=== PATIENT | male | born 1950 | race Caucasian/White ===

== ENCOUNTER 2019-02-21 10:33 | Inpatient (IN) | payer MEDICARE ==
[2019-02-15 16:59] LABS: BASOPHILS % (AUTO) 0.3 % (0-1); EOSINOPHILS # (AUTO) 0.1 X10'3 (0-0.9); EOSINOPHILS % (AUTO) 2.5 % (0-6); LYMPHOCYTES # (AUTO) 1.9 X10'3 (1.1-4.8); LYMPHOCYTES % (AUTO) 33.6 % (21-51); MEAN CORPUSCULAR HEMOGLOBIN 33.5 PG (27.0-31.0); MEAN CORPUSCULAR HGB CONC 33.8 g/dL (33.0-36.5); MEAN CORPUSCULAR VOLUME 99.3 FL (78-98); MEAN PLATELET VOLUME 8.3 FL (7.4-10.4); MONOCYTES # (AUTO) 0.5 X10'3 (0-0.9); MONOCYTES % (AUTO) 8.5 % (2-12); NEUTROPHILS # (AUTO) 3.2 X10'3 (1.8-7.7); NEUTROPHILS % (AUTO) 55.1 % (42-75); PRE OP HEMATOCRIT 42.5 % (42.0-52.0); PRE OP HEMOGLOBIN 14.3 g/dL (14.0-17.9); PRE OP PLATELET COUNT 228 X10'3 (140-440); RED BLOOD COUNT 4.28 X10'6 (4.70-6.10); RED CELL DISTRIBUTION WIDTH 13.5 % (11.5-14.5)
[2019-02-15 17:05] LABS: PRE OP PROTIME 10.7 SECONDS (9.0-12.0)
[2019-02-15 17:07] LABS: ALBUMIN 3.9 G/DL (3.4-5.0); ALBUMIN/GLOBULIN RATIO 1.1 (1.1-1.5); ALKALINE PHOSPHATASE 68 IU/L (46-116); BLOOD UREA NITROGEN 25 MG/DL (7-18); BUN/CREATININE RATIO 30.5 (5.4-32.0); CALCIUM 9.5 MG/DL (8.5-10.1); CHLORIDE 106 MMOL/L (99-107); CREATININE 0.82 MG/DL (0.60-1.10); PRE OP ALT 32 U/L (30-65); PRE OP ANION GAP 9 (8-16); PRE OP AST 17 U/L (10-37); PRE OP BILIRUB, TOTAL 0.3 MG/DL (0.0-1.0); PRE OP GLUCOSE 100 MG/DL (70-104); PRE OP POTASSIUM 4.2 MMOL/L (3.4-5.1); PRE OP SODIUM 141 MMOL/L (135-145); TOTAL CARBON DIOXIDE 25.7 MMOL/L (24-32); TOTAL PROTEIN 7.4 G/DL (6.4-8.2); eGFR > 90 ML/MIN
[~2019-02-21] VITALS: Ht 185.4 cm; Wt 109.8 kg
[2019-02-21] VITALS (15 sets, daily range): BP systolic 98–157; BP diastolic 56–80
[~2019-02-21 10:33] MED LIST: APIX5TAB3 PO; ATOR40TA PO; CARV-50 PO; FURO80TA87 PO; HYDR-4383 PO; LISI40TA4 PO; MAGN400C PO; SPIR25TA PO
[2019-02-21] MEDS ORDERED: acetaminophen 325mg tablet PO PRN (10:45)
[2019-02-21] MEDS ORDERED: oxyCODONE/APAP 10/325mg tablet PO PRN (10:45)
[2019-02-21] MEDS ORDERED: ondansetron/PF 4mg/2ml inj IV PRN ×2 (10:45→14:30)
[2019-02-21] MEDS ORDERED: diphenhydrAMINE 25mg capsule PO PRN ×2 (10:45)
[2019-02-21] MEDS ORDERED: magnesium hydroxide 30ml (MOM) UD suspension PO PRN (10:45)
[2019-02-21] MEDS ORDERED: bisacodyl 10mg suppository rectal RC PRN (10:45)
[2019-02-21] MEDS ORDERED: HYDROmorphone 1 mg/ml syringe IV PRN (10:45)
[2019-02-21] MEDS ORDERED: HYDROmorphone inj. 0.5 MG/0.5 ML DISP.SYRIN IV PRN (10:45)
[2019-02-21] MEDS ORDERED: vancomycin inj 1,500 MG in normal saline 300ml IV soln IV ONE (11:15)
[2019-02-21] MEDS ORDERED: tranexamic acid inj. 1,000 MG in normal saline 100 ML IV ONE (11:15)
[2019-02-21] MEDS ORDERED: acetaminophen 325mg tablet PO ONE (11:15)
[2019-02-21] MEDS ORDERED: gabapentin 300mg capsule PO ONE (11:15)
[2019-02-21] MEDS ORDERED: famotidine 20mg tablet PO ONE (11:15)
[2019-02-21] MEDS ORDERED: ringers solution, lacted 1,000 ML IV SCH ×2 (11:15→14:29)
[2019-02-21] MEDS ORDERED: celeCOXIB 100mg capsule PO ONE (11:15)
[2019-02-21] MEDS ORDERED: DOCUMENT DATE & TIME OF BETA-BLOCKER PO ONE (11:15)
[2019-02-21] MEDS ORDERED: metoclopramide 5 mg/ml inj IV ONE (11:15)
[2019-02-21] MEDS ORDERED: cefazolin/dext.iso 2gm/50ml 50 ML IV ONE (11:15)
[2019-02-21] MEDS ORDERED: oxyCODONE SR 10mg (sust. release) tab -2 tabs (20mg) PO ONE (11:15)
[2019-02-21] MEDS ORDERED: epiNEPHrine 1 mg/ml inj ONE (12:49)
[2019-02-21] MEDS ORDERED: ROPIVAcaine 0.5% (5mg/ml) 30ml vial ONE (12:49)
[2019-02-21] MEDS ORDERED: ketorolac trometh. 30mg/ml inj. ONE (12:49)
[2019-02-21] MEDS ORDERED: cloNIDine hcl/PF 100mcg/ml inj ONE (12:49)
[2019-02-21] MEDS ORDERED: vancomycin 1,000mg inj ONE (12:49)
[2019-02-21] MEDS ORDERED: tetracaine 1% (10mg/ml) pres. free inj. ONE (13:27)
[2019-02-21] MEDS ORDERED: fentaNYL/PF 50MCG/1 ML 2ML syringe ONE (13:29)
[2019-02-21] MEDS ORDERED: MIDAZolam 1mg/ml 10ml vial ONE (13:29)
[2019-02-21] MEDS ORDERED: meperidine/PF 25mg/ml syringe IV PRN ×3 (14:30)
[2019-02-21] MEDS ORDERED: morphine 4 MG/ML inj SYRINge IV PRN ×2 (14:30)
[2019-02-21] MEDS ORDERED: proCHLORperazine 10 MG/2 ml inj IV PRN (14:30)
[2019-02-21] MEDS ORDERED: propofol inj 20 ML IV ONE (15:13)
[2019-02-21] MEDS ORDERED: glycopyrrolate 0.2mg/ml inj ONE (15:15)
--- NOTE | 2019-02-21 15:55 | NUR ---
Received from OR via BED , accompanied by Anesthesiologist DR PYLE and report given by Anesthesiolgist. PATIENT WAKING UP, DENIES PAIN, V/S WNL, NEUROVASCULAR CHECKS INTACT, 18G PIV LUE , BERNY DRESSING TO LEFT KNEE CDI W/ COLD POWDER PACK AND W/ SCD ON. F/C DRAINING CLEAR YELLOW URINE. SENSATION T-11.
[2019-02-21] MEDS ORDERED: cefazolin/dext.iso 2gm/100ml 100 ML IV SCH (16:00)
--- NOTE | 2019-02-21 16:13 | NUR ---
REPORT RECEIVED FROM RECOVERY
[2019-02-21] MEDS: potassium cl 20mEq in 1/2 NS 1,000 ML IV SCH ×2 (16:16→20:53)
[2019-02-21] MEDS: ROPIVAcaine 0.2%/PF PAIN PUMP 550 ML IJ SCH (16:37)
--- NOTE | 2019-02-21 16:55 | NUR ---
PATIENT A&OX4, DENIES PAIN, V/S WNL, NEUROVASCULAR CHECKS INTACT, 18G PIV LUE , BERNY DRESSING TO LEFT KNEE CDI W/ COLD POWDER PACK AND W/ SCD ON. F/C DRAINING CLEAR YELLOW URINE. SENSATION T-12. . PATIENT TAKEN TO WITH ALL BELONGINGS AND HOOKED UP TO MONITORS IN ROOM AND REPORT GIVEN TO CONTENT ADMINISTRATOR WHO HAS TAKEN OVER PATIENT CARE. TELE ON PATIENT WELL.
[2019-02-21] MEDS: cefazolin/dext.iso 2gm/50ml 50 ML IV SCH ×2 (17:56→23:35)
--- NOTE | 2019-02-21 18:27 | NUR ---
Problems reprioritized. Patient report given, questions answered & plan of care reviewed with Nimco KASPER.
[2019-02-21] MEDS ORDERED: tranexamic acid inj. 1,000 MG in normal saline 100ml IV soln 100 ML IV ONE (19:00)
[2019-02-21] MEDS: apixaban 5mg tablet PO SCH (20:48)
[2019-02-21] MEDS: sennosides 8.6mg tablet PO SCH (20:48)
[2019-02-21] MEDS: carvedilol 6.25mg tablet PO SCH (20:49)
[2019-02-21] MEDS: ascorbic acid 500mg tablet PO SCH (20:49)
[2019-02-21] MEDS: gabapentin 300mg capsule PO SCH (20:50)
[2019-02-22 01:48] VITALS: BP 120/57
[2019-02-22] MEDS: oxyCODONE/APAP 10/325mg tablet PO PRN ×4 (04:58→21:20)
[2019-02-22] MEDS: potassium cl 20mEq in 1/2 NS 1,000 ML IV SCH ×3 (05:05→15:04)
[2019-02-22 06:00] VITALS: BP 112/60
[2019-02-22 06:05] LABS: BASOPHILS % (AUTO) 0.2 % (0-1); EOSINOPHILS # (AUTO) 0.2 X10'3 (0-0.9); EOSINOPHILS % (AUTO) 2.5 % (0-6); HEMATOCRIT 33.4 % (42.0-52.0); HEMOGLOBIN 11.3 g/dl (14.0-17.9); LYMPHOCYTES # (AUTO) 1.2 X10'3 (1.1-4.8); LYMPHOCYTES % (AUTO) 18.4 % (21-51); MEAN CORPUSCULAR HEMOGLOBIN 33.6 PG (27.0-31.0); MEAN CORPUSCULAR VOLUME 98.8 FL (78-98); MEAN PLATELET VOLUME 8.2 FL (7.4-10.4); MONOCYTES # (AUTO) 0.6 X10'3 (0-0.9); NEUTROPHILS # (AUTO) 4.4 X10'3 (1.8-7.7); NEUTROPHILS % (AUTO) 68.9 % (42-75); PLATELET COUNT 150 X10'3 (140-440); RED BLOOD COUNT 3.38 X10'6 (4.70-6.10); RED CELL DISTRIBUTION WIDTH 12.9 % (11.5-14.5); WHITE BLOOD COUNT 6.4 X10'3 (4.5-11.0)
[2019-02-22 06:06] LABS: ANION GAP 7 (8-16); CHLORIDE 107 MMOL/L (99-107); POTASSIUM 4.2 MMOL/L (3.5-5.1); SODIUM 139 MMOL/L (135-145); TOTAL CARBON DIOXIDE 25.2 MMOL/L (24-32)
--- NOTE | 2019-02-22 06:15 | NUR ---
Patient in room ORTHO 4015. I have received report from Nimco and had the opportunity to ask questions and assume patient care.
--- NOTE | 2019-02-22 06:18 | NUR ---
Problems reprioritized. Patient report given, questions answered & plan of care reviewed with MAJO ALVARADO.
[2019-02-22] MEDS: cefazolin/dext.iso 2gm/50ml 50 ML IV SCH (07:23)
[2019-02-22] MEDS: furosemide 40mg tablet PO SCH (07:31)
[2019-02-22] MEDS: spironolactone 25 MG tablet PO SCH (07:31)
[2019-02-22] MEDS: apixaban 5mg tablet PO SCH ×2 (07:31→20:31)
[2019-02-22] MEDS: atorvastatin 20mg tablet PO SCH (07:31)
[2019-02-22] MEDS: carvedilol 6.25mg tablet PO SCH ×2 (07:31→20:31)
[2019-02-22] MEDS: magnesium oxide 400mg tablet PO SCH (07:32)
[2019-02-22] MEDS: gabapentin 300mg capsule PO SCH ×3 (07:32→20:31)
[2019-02-22] MEDS: ascorbic acid 500mg tablet PO SCH ×2 (07:33→20:31)
[2019-02-22] MEDS: multivitamins, therapeutics tablet PO SCH (07:33)
[2019-02-22] MEDS: lisinopril 20mg tablet PO SCH (07:34)
[2019-02-22] MEDS ORDERED: non-formulary drug (Magnesium Oxide (Magnesium) 2 CAP) PO SCH (08:00)
[2019-02-22] MEDS ORDERED: non-formulary drug (Atorvastatin Calcium* (Lipitor*) 1 TAB) PO SCH (08:00)
[2019-02-22] MEDS ORDERED: FUROSEMIDE PO SCH (08:00)
[2019-02-22] MEDS ORDERED: non-formulary drug (Lisinopril* 1 TAB) PO SCH (08:00)
[2019-02-22 10:00] VITALS: BP 112/59
[2019-02-22 14:52] VITALS: BP 126/62
--- NOTE | 2019-02-22 17:16 | NUR ---
Joint replacement consult: Pt seen by ANTHONY for written/verbal high protein ed. RD reviewed high protein needs for wound healing, immune strength, high protein foods, and protein supplementation options. RD contact information provided in case of further questions. Pt agrees to ensure pudding TIDWM; dietary notified. Addendum: 02/22/19 at [address] Amended: Links added.
[2019-02-22 18:00] VITALS: BP 136/63
--- NOTE | 2019-02-22 18:23 | NUR ---
Problems reprioritized. Patient report given, questions answered & plan of care reviewed with Mili Boogie
[2019-02-22] MEDS: celeCOXIB 100mg capsule PO SCH (20:31)
[2019-02-22] MEDS: sennosides 8.6mg tablet PO SCH (20:32)
[2019-02-22 22:00] VITALS: BP 113/61
[2019-02-23] MEDS: oxyCODONE/APAP 10/325mg tablet PO PRN ×4 (01:29→13:59)
[2019-02-23] MEDS: potassium cl 20mEq in 1/2 NS 1,000 ML IV SCH (02:43)
[2019-02-23 05:27] LABS: BASOPHILS % (AUTO) 0.3 % (0-1); EOSINOPHILS # (AUTO) 0.3 X10'3 (0-0.9); EOSINOPHILS % (AUTO) 4.8 % (0-6); HEMATOCRIT 31.8 % (42.0-52.0); HEMOGLOBIN 10.9 g/dl (14.0-17.9); LYMPHOCYTES # (AUTO) 1.6 X10'3 (1.1-4.8); LYMPHOCYTES % (AUTO) 24.1 % (21-51); MEAN CORPUSCULAR HEMOGLOBIN 33.7 PG (27.0-31.0); MEAN CORPUSCULAR HGB CONC 34.4 g/dL (33.0-36.5); MEAN CORPUSCULAR VOLUME 97.9 FL (78-98); MEAN PLATELET VOLUME 8.2 FL (7.4-10.4); MONOCYTES # (AUTO) 1.1 X10'3 (0-0.9); MONOCYTES % (AUTO) 16.5 % (2-12); NEUTROPHILS # (AUTO) 3.7 X10'3 (1.8-7.7); NEUTROPHILS % (AUTO) 54.3 % (42-75); PLATELET COUNT 147 X10'3 (140-440); RED BLOOD COUNT 3.25 X10'6 (4.70-6.10); WHITE BLOOD COUNT 6.8 X10'3 (4.5-11.0)
[2019-02-23 06:00] VITALS: BP 108/61
--- NOTE | 2019-02-23 06:20 | NUR ---
Patient in room ORTHO 4015. I have received report from Mili Boogie and had the opportunity to ask questions and assume patient care.
--- NOTE | 2019-02-23 06:25 | NUR ---
Problems reprioritized. Patient report given, questions answered & plan of care reviewed with MAJO Graham.
[2019-02-23 06:55] VITALS: BP 129/71
[2019-02-23 06:56] LABS: TOTAL CELLS COUNTED 100
[2019-02-23 06:57] LABS: ANISOCYTOSIS FEW; PLATELET ESTIMATE NORMAL
[2019-02-23] MEDS: spironolactone 25 MG tablet PO SCH (08:19)
[2019-02-23 08:20] VITALS: BP 129/93
[2019-02-23] MEDS: apixaban 5mg tablet PO SCH (08:20)
[2019-02-23] MEDS: celeCOXIB 100mg capsule PO SCH (08:20)
[2019-02-23] MEDS: carvedilol 6.25mg tablet PO SCH (08:20)
[2019-02-23] MEDS: atorvastatin 20mg tablet PO SCH (08:20)
[2019-02-23] MEDS: magnesium oxide 400mg tablet PO SCH (08:21)
[2019-02-23] MEDS: gabapentin 300mg capsule PO SCH ×2 (08:21→13:59)
[2019-02-23] MEDS: furosemide 40mg tablet PO SCH (08:21)
[2019-02-23] MEDS: ascorbic acid 500mg tablet PO SCH (08:21)
--- NOTE | 2019-02-23 08:21 | NUR ---
Student Medication Administration: For this medication-pass time frame, all medication were reviewed, dispensed, administered and documented per hospital policy by Mary ELIZABETH at [facility], with her instructor.
[2019-02-23] MEDS: lisinopril 20mg tablet PO SCH (08:22)
[2019-02-23] MEDS: multivitamins, therapeutics tablet PO SCH (08:22)
--- NOTE | 2019-02-23 08:45 | NUR ---
DC orders in, pt not in a watters to discharge.
[2019-02-23 10:00] VITALS: BP 98/45
[2019-02-23] MEDS ORDERED: normal saline 1000ml 1,000 ML IV SCH (10:20)
--- NOTE | 2019-02-23 10:30 | NUR ---
Pt's blood pressure decreased, per PEST CONTROL SPECIALIST, give 500 mL bolus and recheck.
[2019-02-23 11:40] VITALS: BP 98/49
--- NOTE | 2019-02-23 11:58 | NUR ---
Student documentation: I have reviewed all interventions, assessments performed and documented by Mary Brock [place]. Student Medication Administration: For this medication-pass time frame, all medication were reviewed, dispensed, administered and documented per hospital policy by [facility].
[2019-02-23 13:40] VITALS: BP 119/63
[2019-02-23] MEDS: ROPIVAcaine 0.2%/PF PAIN PUMP 550 ML IJ SCH (14:31)
--- NOTE | 2019-02-23 14:43 | NUR ---
BP stable, will DC.
--- NOTE | 2019-02-23 15:21 | NUR ---
Pt awaiting ride between 16:00 - 16:30
--- NOTE | 2019-02-23 16:18 | NUR ---
Reviewed discharge instructions with pt. Pt verbalized understanding. Pt is alert, oriented and does not have c/o pain or discomfort at this time. Pt's On-Q pump was refilled prior to discharge. All of pt's belongings were returned to him. Pt was wheeled downstairs to be driven home by his daughter.
== END 2019-02-23 16:20 | disposition home or self-care (01) | DRG 470 ==
LOC: PAS IN 10:33 → EDSTATUS 13:15 → ORTHO 4S 16:50
PROVIDERS: ADMIT Orthopaedic Surgery; ATTEND Orthopaedic Surgery
PROC: 3E0T3BZ Introduction of Anesthetic Agent into Peripheral Nerves and Plexi, Percutaneous Approach (ICD-10-PCS; 2019-02-21)
PROC: 0SRD069 Replacement of Left Knee Joint with Oxidized Zirconium on Polyethylene Synthetic Substitute, Cemented, Open Approach (ICD-10-PCS; principal; 2019-02-21 13:21)
DX: M17.12 Unilateral primary osteoarthritis, left knee (principal); D62 Acute posthemorrhagic anemia; I11.0 Hypertensive heart disease with heart failure; I50.9 Heart failure, unspecified; M19.011 Primary osteoarthritis, right shoulder; Z86.711 Personal history of pulmonary embolism; Z72.89 Other problems related to lifestyle; Z79.899 Other long term (current) drug therapy; Z79.01 Long term (current) use of anticoagulants
CPT/HCPCS: 36415; 73560; 80051; 80053; 82948; 85025; 85610; 85730; 86885; 86900; 86901; 87081; 97110; 97116; 97161; 97530; A4215; A6454; A7000; C1713; C1758; C1776; G0378; J0171; J0735; J1170; J1885; J2250; J2405; J2704; J2765; J2795; J3010; J3370; J3480; J3490; J7030; J7120

== ENCOUNTER 2019-04-28 07:30 | Inpatient (IN) | payer MEDICARE ==
[~2019-04-28] VITALS: Ht 185.4 cm; Wt 111.1 kg
[~2019-04-28 07:30] MED LIST changes: -HYDR-4383 PO
[2019-05-09 11:00] LABS: BASOPHILS % (AUTO) 0.2 % (0-1); EOSINOPHILS # (AUTO) 0.2 X10'3 (0-0.9); EOSINOPHILS % (AUTO) 3.8 % (0-6); LYMPHOCYTES # (AUTO) 2.2 X10'3 (1.1-4.8); LYMPHOCYTES % (AUTO) 37.1 % (21-51); MEAN CORPUSCULAR HEMOGLOBIN 32.2 PG (27.0-31.0); MEAN CORPUSCULAR HGB CONC 33.9 g/dL (33.0-36.5); MEAN CORPUSCULAR VOLUME 94.9 FL (78-98); MEAN PLATELET VOLUME 7.9 FL (7.4-10.4); MONOCYTES # (AUTO) 0.7 X10'3 (0-0.9); MONOCYTES % (AUTO) 10.9 % (2-12); NEUTROPHILS # (AUTO) 2.9 X10'3 (1.8-7.7); PRE OP HEMATOCRIT 40.1 % (42.0-52.0); PRE OP HEMOGLOBIN 13.6 g/dL (14.0-17.9); PRE OP PLATELET COUNT 256 X10'3 (140-440); RED BLOOD COUNT 4.23 X10'6 (4.70-6.10); RED CELL DISTRIBUTION WIDTH 14.5 % (11.5-14.5)
[2019-05-09 11:10] LABS: PRE OP PROTIME 10.8 SECONDS (9.0-12.0)
[2019-05-09 11:22] LABS: ALBUMIN 3.9 G/DL (3.4-5.0); ALBUMIN/GLOBULIN RATIO 1.2 (1.1-1.5); ALKALINE PHOSPHATASE 71 IU/L (46-116); BLOOD UREA NITROGEN 24 MG/DL (7-18); BUN/CREATININE RATIO 24.2 (5.4-32.0); CALCIUM 8.9 MG/DL (8.5-10.1); CHLORIDE 105 MMOL/L (99-107); CREATININE 0.99 MG/DL (0.60-1.10); PRE OP ALT 23 U/L (30-65); PRE OP ANION GAP 7 (8-16); PRE OP AST 17 U/L (10-37); PRE OP BILIRUB, TOTAL 0.6 MG/DL (0.0-1.0); PRE OP GLUCOSE 103 MG/DL (70-104); PRE OP POTASSIUM 4.2 MMOL/L (3.4-5.1); PRE OP SODIUM 141 MMOL/L (135-145); TOTAL CARBON DIOXIDE 29.3 MMOL/L (24-32); TOTAL PROTEIN 7.2 G/DL (6.4-8.2); eGFR 75 ML/MIN
[2019-05-09] MEDS ORDERED: GABA-532 PO (11:39)
[2019-05-09] MEDS ORDERED: CELE200C PO (11:39)
[2019-05-09] MEDS ORDERED: OXYC10TA47 PO (11:39)
[2019-05-09] MEDS ORDERED: ONDA8TAB13 PO (11:39)
[2019-05-15] VITALS (24 sets, daily range): BP systolic 132–155; BP diastolic 68–86
[2019-05-15] MEDS ORDERED: ringers solution, lacted 1,000 ML IV SCH ×2 (05:00→08:42)
[2019-05-15] MEDS ORDERED: cefazolin/dext.iso 2gm/100ml 100 ML IV ONE (05:30)
[2019-05-15] MEDS ORDERED: famotidine 20mg tablet PO ONE (05:30)
[2019-05-15] MEDS ORDERED: vancomycin inj 1,500 MG in normal saline 300ml IV soln IV ONE (05:30)
[2019-05-15] MEDS ORDERED: DOCUMENT DATE & TIME OF BETA-BLOCKER PO ONE (05:30)
[2019-05-15] MEDS ORDERED: tranexamic acid inj. 1,100 MG in normal saline 100ml IV soln 100 ML IV ONE ×4 (05:30)
[2019-05-15] MEDS ORDERED: ROPIVAcaine 0.2%/PF PUMP/bolus 550 ML INTERSCALE SCH (08:42)
[2019-05-15] MEDS ORDERED: ketorolac trometh. 30mg/ml inj. ONE (08:43)
[2019-05-15] MEDS ORDERED: ROPIVAcaine 0.5% (5mg/ml) 30ml vial ONE ×2 (08:44→11:46)
[2019-05-15] MEDS ORDERED: proCHLORperazine 10 MG/2 ml inj IV PRN (08:45)
[2019-05-15] MEDS ORDERED: morphine 4 MG/ML inj SYRINge IV PRN ×2 (08:45)
[2019-05-15] MEDS ORDERED: ondansetron/PF 4mg/2ml inj IV PRN ×2 (08:45→12:40)
[2019-05-15] MEDS ORDERED: ROPIVAcaine 0.2% (10 MG/5 ML) BOLUS INJECTION INTERSCALE PRN (08:45)
[2019-05-15] MEDS ORDERED: meperidine/PF 25mg/ml syringe IV PRN ×3 (08:45)
[2019-05-15] MEDS ORDERED: ePHEDrine 50MG/ML INJ. ONE (09:40)
[2019-05-15] MEDS ORDERED: sevoflurane 250ml liquid IH ONE (09:40)
[2019-05-15] MEDS ORDERED: fentaNYL/PF 50MCG/1 ML 2ML syringe ONE (09:51)
[2019-05-15] MEDS ORDERED: MIDAZolam 5mg/5ml vial ONE (09:52)
[2019-05-15] MEDS ORDERED: glycopyrrolate 0.2mg/ml inj ONE (11:46)
[2019-05-15] MEDS ORDERED: dexamethasone sod phosphate 4mg/ml inj. ONE (11:46)
[2019-05-15] MEDS ORDERED: rocuronium 10mg/ml inj IV ONE (11:46)
[2019-05-15] MEDS ORDERED: ondansetron/PF 4mg/2ml inj ONE (11:46)
[2019-05-15] MEDS ORDERED: propofol inj 20 ML IV ONE (11:46)
[2019-05-15] MEDS ORDERED: neostigmine methylsulfate 1 MG/ML 10ml vial ONE (11:46)
[2019-05-15] MEDS ORDERED: LIDOcaine 1%/PF 5ML 10 MG/ML VIAL ONE (11:46)
[2019-05-15] MEDS ORDERED: flumazenil 0.1 mg/ml inj. IV ONE (12:03)
--- NOTE | 2019-05-15 12:15 | NUR ---
Received from OR via BED , accompanied by Anesthesiologist and report given by Anesthesiolgist. PATIENT WAKING UP, DENIES PAIN, V/S WNL, NEUROVASCULAR CHECKS INTACT, DRESSING TO RIGHT SHOULDER CDI WITH SLING AND COLD POWDER PACK ON AND ONQUE BALL BLOCK AT 4ML/HR. SCD ON. 18G BECCAE PIV.
[2019-05-15] MEDS ORDERED: acetaminophen 325mg tablet PO PRN (12:40)
[2019-05-15] MEDS ORDERED: bisacodyl 10mg suppository rectal RC PRN (12:40)
[2019-05-15] MEDS ORDERED: oxyCODONE IR 5mg (immed. release) tablet PO PRN (12:40)
[2019-05-15] MEDS ORDERED: magnesium hydroxide 30ml (MOM) UD suspension PO PRN (12:40)
[2019-05-15] MEDS ORDERED: ondansetron 4mg rapidly disintigrating tab PO PRN (12:40)
[2019-05-15] MEDS ORDERED: HYDROmorphone 1 mg/ml syringe IV PRN (12:40)
[2019-05-15] MEDS ORDERED: HYDROmorphone inj. 0.5 MG/0.5 ML DISP.SYRIN IV PRN (12:40)
[2019-05-15] MEDS ORDERED: diphenhydrAMINE 25mg capsule PO PRN ×2 (12:40)
[2019-05-15] MEDS: acetaminophen 325mg tablet PO SCH ×2 (14:00→21:41)
--- NOTE | 2019-05-15 14:05 | NUR ---
PATIENT A&OX4, DENIES PAIN, V/S WNL, NEUROVASCULAR CHECKS INTACT, DRESSING TO RIGHT SHOULDER CDI WITH SLING AND COLD POWDER PACK ON AND ONQUE BALL BLOCK AT 4ML/HR. SCD ON. 18G LUE PIV. pATIENT TAKEN TO ORTHO ROOM AND HOOKED UP TO MONITORS IN ROOM AND PULSE OX, CALL LIGHT GIVEN TO PATIENT AND Problems reprioritized. Patient report given , questions answered & plan of care reviewed RECIEVING TRAIN PLANNER WHO HAS TAKEN OVER PATIENT CARE.
[2019-05-15] MEDS ORDERED: tranexamic acid inj. 1,110 MG in normal saline 100ml IV soln 100 ML IV ONE (15:40)
[2019-05-15 15:43] LABS: CREATININE 0.93 MG/DL (0.60-1.10); POTASSIUM 4.3 MMOL/L (3.5-5.1); eGFR 81 ML/MIN
[2019-05-15] MEDS: gabapentin 300mg capsule PO SCH ×2 (17:28→23:38)
[2019-05-15] MEDS: ceFAZolin 1GM/D5W- ADD-VANTAGE 50 ML IV SCH ×2 (17:28→23:40)
[2019-05-15] MEDS: potassium cl 20mEq in 1/2 NS 1,000 ML IV SCH ×2 (17:29→20:37)
[2019-05-15] MEDS ORDERED: vancomycin/NS 1 GM ADD-VANTAGE 250 ML IV SCH (20:00)
[2019-05-15] MEDS ORDERED: celeCOXIB 100mg capsule PO SCH (20:00)
[2019-05-15] MEDS ORDERED: sennosides 8.6mg tablet PO SCH (21:00)
[2019-05-15] MEDS: apixaban 5mg tablet PO SCH (21:37)
[2019-05-15] MEDS: carvedilol 6.25mg tablet PO SCH (21:38)
[2019-05-15] MEDS: magnesium oxide 400mg tablet PO SCH (21:41)
[2019-05-16] MEDS: acetaminophen 325mg tablet PO SCH ×3 (02:00→15:01)
[2019-05-16 02:05] VITALS: BP 122/68
[2019-05-16] MEDS: potassium cl 20mEq in 1/2 NS 1,000 ML IV SCH ×2 (03:54→12:37)
[2019-05-16 06:27] VITALS: BP 131/67
[2019-05-16 07:17] LABS: BASOPHILS % (AUTO) 0.1 % (0-1); EOSINOPHILS % (AUTO) 0.2 % (0-6); HEMATOCRIT 34.1 % (42.0-52.0); HEMOGLOBIN 11.6 g/dl (14.0-17.9); LYMPHOCYTES # (AUTO) 1.6 X10'3 (1.1-4.8); MEAN CORPUSCULAR HEMOGLOBIN 32.6 PG (27.0-31.0); MEAN CORPUSCULAR HGB CONC 33.9 g/dL (33.0-36.5); MEAN CORPUSCULAR VOLUME 96.2 FL (78-98); MEAN PLATELET VOLUME 8.3 FL (7.4-10.4); MONOCYTES # (AUTO) 0.8 X10'3 (0-0.9); MONOCYTES % (AUTO) 9.8 % (2-12); NEUTROPHILS # (AUTO) 5.4 X10'3 (1.8-7.7); NEUTROPHILS % (AUTO) 69.9 % (42-75); PLATELET COUNT 188 X10'3 (140-440); RED BLOOD COUNT 3.54 X10'6 (4.70-6.10); RED CELL DISTRIBUTION WIDTH 14.2 % (11.5-14.5); WHITE BLOOD COUNT 7.8 X10'3 (4.5-11.0)
[2019-05-16] MEDS: carvedilol 6.25mg tablet PO SCH (07:54)
[2019-05-16] MEDS: apixaban 5mg tablet PO SCH (07:54)
[2019-05-16] MEDS: magnesium oxide 400mg tablet PO SCH (07:56)
[2019-05-16] MEDS: gabapentin 300mg capsule PO SCH (07:57)
[2019-05-16] MEDS ORDERED: lisinopril 20mg tablet PO SCH (08:00)
[2019-05-16] MEDS ORDERED: atorvastatin 20mg tablet PO SCH (08:00)
[2019-05-16] MEDS ORDERED: furosemide 40mg tablet PO SCH (08:00)
[2019-05-16] MEDS ORDERED: spironolactone 25 MG tablet PO SCH (08:00)
[2019-05-16] MEDS ORDERED: aspirin 325mg tablet PO SCH (08:30)
[2019-05-16 09:11] LABS: ANION GAP 18 (8-16); CHLORIDE 111 MMOL/L (99-107); POTASSIUM 4.4 MMOL/L (3.5-5.1); SODIUM 146 MMOL/L (135-145); TOTAL CARBON DIOXIDE 17.1 MMOL/L (24-32)
[2019-05-16] MEDS: oxyCODONE IR 5mg (immed. release) tablet PO PRN ×2 (09:53→15:04)
[2019-05-16 10:15] VITALS: BP 156/53
--- NOTE | 2019-05-16 11:02 | NUR ---
Student Medication Administration:For this medication-pass time frame [id number], all medications were reviewed,administered and documented per hospital policy by Shirley Armstrong. Student documentation:I have reviewed and agree with all interventions, assessments performed and documented by Shirley Armstrong.
--- NOTE | 2019-05-16 12:22 | NUR ---
Joint replacement consult: Pt seen by ANTHONY for written/verbal high protein ed w/ RD contact information provided. Pt reports has premier proteins at home. Will continue to monitor. Addendum: 05/16/19 at [address] Amended: Links added.
[2019-05-16 14:00] VITALS: BP 143/80
[2019-05-17] MEDS ORDERED: acetaminophen 325mg tablet PO PRN (12:40)
== END 2019-05-16 16:05 | disposition home health service (06) | DRG 483 ==
LOC: EDUNIT# 07:30 → PAS IN 05-15 06:56 → EDSTATUS 05-15 13:30 → ORTHO 4S 05-15 13:55
PROVIDERS: ADMIT Orthopaedic Surgery; ATTEND Orthopaedic Surgery
PROC: 0LS30ZZ Reposition Right Upper Arm Tendon, Open Approach (ICD-10-PCS; 2019-05-15)
PROC: 3E0T3BZ Introduction of Anesthetic Agent into Peripheral Nerves and Plexi, Percutaneous Approach (ICD-10-PCS; 2019-05-15)
PROC: 0RRJ0JZ Replacement of Right Shoulder Joint with Synthetic Substitute, Open Approach (ICD-10-PCS; principal; 2019-05-15 09:40)
DX: M19.011 Primary osteoarthritis, right shoulder (principal); D62 Acute posthemorrhagic anemia; M25.511 Pain in right shoulder; E78.5 Hyperlipidemia, unspecified; R30.9 Painful micturition, unspecified; Z96.652 Presence of left artificial knee joint; G89.29 Other chronic pain; I11.0 Hypertensive heart disease with heart failure; I50.9 Heart failure, unspecified; M65.811 Other synovitis and tenosynovitis, right shoulder; Z86.711 Personal history of pulmonary embolism; Z72.89 Other problems related to lifestyle; Z79.899 Other long term (current) drug therapy; Z79.01 Long term (current) use of anticoagulants
CPT/HCPCS: 36415; 80051; 80053; 82565; 82948; 84132; 85025; 85610; 85730; 87081; 97110; 97116; 97162; A4215; A4565; A4618; A7000; C1713; C1776; G0378; J0690; J1100; J1170; J1885; J2250; J2405; J2704; J2710; J2795; J3010; J3370; J3480; J3490; J7120

== ENCOUNTER 2021-10-09 07:27 | Outpatient (CLI) | payer MEDICARE ==
[2021-10-09] VITALS (23 sets, daily range): BP systolic 0–224; BP diastolic 0–134
[~2021-10-09 07:27] MED LIST changes: +CELE200C PO; +GABA-532 PO; +LISI40TA13 PO; -LISI40TA4 PO; +ONDA8TAB13 PO; +OXYC10TA47 PO
== END 2021-10-09 23:59 | disposition home or self-care (01) ==
LOC: CARD DIAG 07:27
PROVIDERS: ATTEND Internal Medicine Cardiovascular Disease
DX: R42 Dizziness and giddiness (principal)
CPT/HCPCS: 93660

== ENCOUNTER 2021-11-18 09:36 | Inpatient (IN) | payer MEDICARE ==
[2021-11-13 12:24] LABS: BASOPHILS % (AUTO) 0.7 % (0-1); EOSINOPHILS # (AUTO) 0.1 X10'3 (0-0.9); EOSINOPHILS % (AUTO) 1.6 % (0-6); LYMPHOCYTES # (AUTO) 1.4 X10'3 (1.1-4.8); LYMPHOCYTES % (AUTO) 26.6 % (21-51); MEAN CORPUSCULAR HEMOGLOBIN 32.3 PG (27.0-31.0); MEAN CORPUSCULAR HGB CONC 33.9 g/dL (33.0-36.5); MEAN CORPUSCULAR VOLUME 95.2 FL (78-98); MEAN PLATELET VOLUME 7.9 FL (7.4-10.4); MONOCYTES # (AUTO) 0.7 X10'3 (0-0.9); MONOCYTES % (AUTO) 12.4 % (2-12); NEUTROPHILS # (AUTO) 3.1 X10'3 (1.8-7.7); NEUTROPHILS % (AUTO) 58.7 % (42-75); PRE OP HEMATOCRIT 55.9 % (42.0-52.0); PRE OP PLATELET COUNT 216 X10'3 (140-440); RED BLOOD COUNT 5.87 X10'6 (4.70-6.10); RED CELL DISTRIBUTION WIDTH 15.8 % (11.5-14.5)
[2021-11-13 12:37] LABS: ALBUMIN 3.9 G/DL (3.4-5.0); ALBUMIN/GLOBULIN RATIO 1.1 (1.1-1.5); ALKALINE PHOSPHATASE 60 IU/L (46-116); BLOOD UREA NITROGEN 18 MG/DL (7-18); BUN/CREATININE RATIO 16.8 (5.4-32.0); CHLORIDE 102 MMOL/L (99-107); CREATININE 1.07 MG/DL (0.60-1.10); PRE OP ALT 40 U/L (30-65); PRE OP ANION GAP 7 (8-16); PRE OP AST 23 U/L (10-37); PRE OP BILIRUB, TOTAL 0.7 MG/DL (0.0-1.0); PRE OP GLUCOSE 97 MG/DL (70-104); PRE OP SODIUM 137 MMOL/L (135-145); TOTAL CARBON DIOXIDE 27.8 MMOL/L (24-32); TOTAL PROTEIN 7.5 G/DL (6.4-8.2); eGFR 68 ML/MIN
[~2021-11-18] VITALS: Ht 188 cm; Wt 120.8 kg
[2021-11-18] VITALS (30 sets, daily range): BP systolic 99–156; BP diastolic 51–88
[~2021-11-18 09:36] MED LIST changes: +AMPH30TA3 PO; -APIX5TAB3 PO; -CARV-50 PO; -CELE200C PO; +CHOL400T32 PO; +CYAN500T71 PO; +FOLI0.4T14 PO; -FURO80TA87 PO; -GABA-532 PO; +HYDR25TA5 PO; +HYDROmorphone inj. 0.5 MG/0.5 ML DISP.SYRIN IV PRN; -MAGN400C PO; +NAPR-1170 PO; +OMEG-133 PO; -ONDA8TAB13 PO; -OXYC10TA47 PO; +PYRI-3 PO; -SPIR25TA PO; +TEST200V33 IM; +TESTOSTERONE CYPIONATE 200 MG/ML VIAL IM SCH; +WARF-55 PO; +acetaminophen 325mg tablet PO ONE; +acetaminophen 325mg tablet PO PRN; +atorvastatin 20mg tablet PO SCH; +bisacodyl 10mg suppository rectal RC PRN; +ceFAZolin inj. 3,000 MG in normal saline 100ml IV soln 100 ML IV ONE; +ceFAZolin/D5W- 1GM premix 50 ML IV SCH; +celeCOXIB 100mg capsule PO ONE; +diphenhydrAMINE 25mg capsule PO PRN; +famotidine 20mg tablet PO ONE; +gabapentin 300mg capsule PO ONE; +magnesium hydroxide 30ml (MOM) UD suspension PO PRN; +metoclopramide 5 mg/ml inj IV ONE; +naloxone 0.4 mg/ml inj IV PRN; +ondansetron/PF 4mg/2ml inj IV PRN; +oxyCODONE SR 10mg (sust. release) tab -2 tabs (20mg) PO ONE; +ringers solution, lacted 1,000 ML IV SCH; +tranexamic acid inj. 1,000 MG in normal saline 100ml IV soln 90 ML IV ONE; +vancomycin 1,500 MG in NS 300ml IV soln IV ONE; +warfarin 5mg tablet PO SCH
[2021-11-18] MEDS ORDERED: cloNIDine hcl/PF 100mcg/ml inj ONE (11:04)
[2021-11-18] MEDS ORDERED: ketorolac trometh. 30mg/ml inj. ONE (11:04)
[2021-11-18] MEDS ORDERED: epiNEPHrine 1 mg/ml inj ONE (11:04)
[2021-11-18] MEDS ORDERED: vancomycin 1,000mg inj ONE (11:05)
[2021-11-18] MEDS ORDERED: ROPIVAcaine 0.5% (5mg/ml) 30ml vial ONE (11:05)
[2021-11-18] MEDS ORDERED: fentaNYL/PF 50MCG/1 ML 2ML syringe ONE (11:51)
[2021-11-18] MEDS ORDERED: MIDAZolam 1mg/ml 10ml vial ONE (11:51)
--- NOTE | 2021-11-18 12:00 | NUR ---
PT HAS GOOD CSM AND PEDAL PULSES IN BILAT LOWER EXTREMITIES AND AND PT STATED HE READ HIS EDUCTION MATERIAL BUT DID NOT DO ANY NASAL MUPIROCIN OINTMENT.
[2021-11-18] MEDS ORDERED: meperidine/PF 25mg/ml syringe IV PRN ×3 (12:40)
[2021-11-18] MEDS ORDERED: morphine 4 MG/ML inj SYRINge IV PRN (12:40)
[2021-11-18] MEDS ORDERED: ringers solution, lacted 1,000 ML IV SCH (12:40)
[2021-11-18] MEDS ORDERED: proCHLORperazine 10 MG/2 ml inj IV PRN (12:40)
[2021-11-18] MEDS ORDERED: morphine 2 MG/ML inj. syringe IV PRN (12:40)
[2021-11-18] MEDS ORDERED: ondansetron/PF 4mg/2ml inj IV PRN (12:40)
--- NOTE | 2021-11-18 13:21 | NUR ---
Received from OR via HOSPITAL BED , accompanied by Anesthesiologist: DR PYLE and report given by Anesthesiolgist. PATIENT HAS PVC'S. OTHER VITALS STABLE.ROOM AIR AT 96% 20G IN THE RIGHT HAND. ACTECOAT AND BERNY DRESSING ON THE RIGHT HIP WITH BRACE ON THE RIGHT KNEE. Addendum: 11/18/21 at 1412 by Mine Veliz RN Amended: Links added.
[2021-11-18] MEDS ORDERED: tranexamic acid inj. 1,200 MG in normal saline 100ml IV soln 88 ML IV ONE (15:38)
[2021-11-18] MEDS ORDERED: cefazolin/dext.iso 2gm/100ml 100 ML IV SCH (16:00)
[2021-11-18] MEDS: cefazolin/dext.iso 2gm/100ml 100 ML IV SCH (16:15)
--- NOTE | 2021-11-18 17:21 | NUR ---
PATIENT MEETS DISCHARGE CRITERIA. VVS, PATIENT IS IN NO PAIN. SENT HIS BELONGINGS WITH THE NURSE TRANSPORTING PATIENT TO THE FLOOR. CALLED REPORT TO CHARLES KASPER AT 1630. Addendum: 11/18/21 at 1729 by Mine Veliz RN Amended: Links added.
[2021-11-18] MEDS: HYDROmorphone 1 mg/ml syringe IV PRN (18:14)
[2021-11-18] MEDS: potassium cl 20mEq in 1/2 NS 1,000 ML IV SCH (19:24)
[2021-11-18] MEDS ORDERED: vancomycin inj 1,750 MG in normal saline 500ml IV soln 350 ML IV ONE (20:00)
[2021-11-18] MEDS ORDERED: warfarin 5mg tablet PO SCH (21:00)
--- NOTE | 2021-11-18 23:00 | NUR ---
received report from bernadine Villatoro.
[2021-11-18] MEDS ORDERED: warfarin 7.5mg tablet PO SCH (23:06)
[2021-11-18] MEDS: HYDROcodone/acetaminophen 10/325mg tab PO PRN (23:15)
[2021-11-18] MEDS: sennosides 8.6mg tablet PO SCH (23:16)
[2021-11-18] MEDS: ascorbic acid 500mg tablet PO SCH (23:19)
[2021-11-18] MEDS: gabapentin 300mg capsule PO SCH (23:19)
[2021-11-18] MEDS: lisinopril 20mg tablet PO SCH (23:21)
[2021-11-19] MEDS: HYDROmorphone 1 mg/ml syringe IV PRN ×5 (01:01→22:02)
[2021-11-19] MEDS: cefazolin/dext.iso 2gm/100ml 100 ML IV SCH (01:04)
[2021-11-19 02:18] VITALS: BP 118/67
[2021-11-19] MEDS: HYDROcodone/acetaminophen 10/325mg tab PO PRN ×4 (05:42→19:00)
[2021-11-19] MEDS: potassium cl 20mEq in 1/2 NS 1,000 ML IV SCH ×3 (05:51→23:25)
[2021-11-19 05:59] LABS: BASOPHILS % (AUTO) 0.3 % (0-1); EOSINOPHILS # (AUTO) 0.1 X10'3 (0-0.9); EOSINOPHILS % (AUTO) 1.8 % (0-6); HEMATOCRIT 48.2 % (42.0-52.0); HEMOGLOBIN 16.1 g/dl (14.0-17.9); LYMPHOCYTES # (AUTO) 1.5 X10'3 (1.1-4.8); LYMPHOCYTES % (AUTO) 19.8 % (21-51); MEAN CORPUSCULAR HEMOGLOBIN 32.8 PG (27.0-31.0); MEAN CORPUSCULAR HGB CONC 33.5 g/dL (33.0-36.5); MEAN CORPUSCULAR VOLUME 97.9 FL (78-98); MEAN PLATELET VOLUME 7.8 FL (7.4-10.4); MONOCYTES % (AUTO) 12.4 % (2-12); NEUTROPHILS # (AUTO) 5.1 X10'3 (1.8-7.7); NEUTROPHILS % (AUTO) 65.7 % (42-75); PLATELET COUNT 181 X10'3 (140-440); RED BLOOD COUNT 4.92 X10'6 (4.70-6.10); RED CELL DISTRIBUTION WIDTH 15.8 % (11.5-14.5); WHITE BLOOD COUNT 7.7 X10'3 (4.5-11.0)
[2021-11-19 06:00] VITALS: BP 114/67
--- NOTE | 2021-11-19 06:20 | NUR ---
RECEIVED REPORT FROM MAJO BLACKMON
--- NOTE | 2021-11-19 06:26 | NUR ---
Problems reprioritized. Patient report given, questions answered & plan of care reviewed with MAJO WOODS.
[2021-11-19 06:35] LABS: ANION GAP 6 (8-16); CHLORIDE 103 MMOL/L (99-107); POTASSIUM 4.7 MMOL/L (3.5-5.1); SODIUM 138 MMOL/L (135-145); TOTAL CARBON DIOXIDE 29.1 MMOL/L (24-32)
[2021-11-19] MEDS: ascorbic acid 500mg tablet PO SCH ×2 (07:58→20:24)
[2021-11-19] MEDS: HYDROchlorothiazide 25mg tablet PO SCH ×2 (07:58→08:00)
[2021-11-19] MEDS: gabapentin 300mg capsule PO SCH ×3 (07:59→20:23)
[2021-11-19] MEDS: multivitamins, therapeutics tablet PO SCH ×2 (07:59→08:00)
[2021-11-19] MEDS: lisinopril 20mg tablet PO SCH ×2 (08:00→20:24)
[2021-11-19] MEDS: dextroamphetamine/amphetamine 5mg tablet PO SCH ×2 (08:00→20:00)
[2021-11-19 10:00] VITALS: BP 112/64
--- NOTE | 2021-11-19 11:30 | NUR ---
Pt s/p right MINERVA, seen at bedside for written and verbal protein education. Pt endorses a good appetite and agrees to double protein TID and cottage cheese for satiety, d/w dietary. Pt denies food allergies or difficulty chewing or swallowing. LBM 11/17. Pt does c/o some constipation. Currently receiving routine bowel care with additional PRN bowel care available. Pt agrees to prunes and prune juice for further assistance with bowel regularity, d/w dietary. Pt provided with RD contact information and encouraged to reach out if needed. Will remain available. Addendum: 11/19/21 at [address] Amended: Links added.
[2021-11-19 14:00] VITALS: BP 108/62
[2021-11-19 18:00] VITALS: BP 102/51
--- NOTE | 2021-11-19 18:10 | NUR ---
gave report bernadine layne
--- NOTE | 2021-11-19 18:50 | NUR ---
Patient in room ORTHO 4021. I have received report from PEGGY KASPER and had the opportunity to ask questions and assume patient care.
[2021-11-19] MEDS: celeCOXIB 100mg capsule PO SCH (20:23)
[2021-11-19] MEDS: sennosides 8.6mg tablet PO SCH (20:23)
[2021-11-19] MEDS: atorvastatin 20mg tablet PO SCH (20:24)
[2021-11-19] MEDS: warfarin 7.5mg tablet PO SCH (20:25)
[2021-11-19 22:00] VITALS: BP 140/69
[2021-11-20] MEDS: HYDROcodone/acetaminophen 10/325mg tab PO PRN ×5 (00:57→20:07)
[2021-11-20 02:44] VITALS: BP 101/57
[2021-11-20 06:29] LABS: BASOPHILS % (AUTO) 0.5 % (0-1); EOSINOPHILS # (AUTO) 0.2 X10'3 (0-0.9); LYMPHOCYTES # (AUTO) 1.6 X10'3 (1.1-4.8); LYMPHOCYTES % (AUTO) 21.9 % (21-51); MEAN CORPUSCULAR HEMOGLOBIN 32.9 PG (27.0-31.0); MEAN CORPUSCULAR HGB CONC 33.3 g/dL (33.0-36.5); MEAN CORPUSCULAR VOLUME 98.8 FL (78-98); MEAN PLATELET VOLUME 8.3 FL (7.4-10.4); MONOCYTES % (AUTO) 13.9 % (2-12); NEUTROPHILS # (AUTO) 4.3 X10'3 (1.8-7.7); NEUTROPHILS % (AUTO) 60.7 % (42-75); PLATELET COUNT 183 X10'3 (140-440); RED BLOOD COUNT 4.85 X10'6 (4.70-6.10); RED CELL DISTRIBUTION WIDTH 16.1 % (11.5-14.5); WHITE BLOOD COUNT 7.2 X10'3 (4.5-11.0)
[2021-11-20 06:32] VITALS: BP 98/71
[2021-11-20] MEDS ORDERED: TESTOSTERONE CYPIONATE 200 MG/ML VIAL IM SCH (07:20)
[2021-11-20] MEDS: multivitamins, therapeutics tablet PO SCH (07:53)
[2021-11-20] MEDS: celeCOXIB 100mg capsule PO SCH ×2 (07:53→19:56)
[2021-11-20] MEDS: gabapentin 300mg capsule PO SCH ×3 (07:53→19:58)
[2021-11-20] MEDS: HYDROchlorothiazide 25mg tablet PO SCH (07:54)
[2021-11-20] MEDS: ascorbic acid 500mg tablet PO SCH ×2 (07:54→19:56)
[2021-11-20] MEDS: lisinopril 20mg tablet PO SCH ×2 (07:55→19:58)
[2021-11-20] MEDS: dextroamphetamine/amphetamine 5mg tablet PO SCH ×2 (07:57→19:57)
[2021-11-20] MEDS: HYDROmorphone 1 mg/ml syringe IV PRN (09:00)
[2021-11-20 10:00] VITALS: BP 126/57
--- NOTE | 2021-11-20 12:30 | NUR ---
Patient in room ORTHO 4021a. I have received report from MAJO Hickey and had the opportunity to ask questions and assume patient care.
--- NOTE | 2021-11-20 12:32 | NUR ---
Problems reprioritized. Patient report given, questions answered & plan of care reviewed with TOM KASPER.
[2021-11-20 14:00] VITALS: BP 110/56
--- NOTE | 2021-11-20 15:28 | NUR ---
Pt c/o pain 12/14 and asked for "pain shot" but agreed to try [place] 10 x2 tabs at this time. Pt rtn'd to bed and brace was applied to r leg.
--- NOTE | 2021-11-20 17:00 | NUR ---
Pt worked w/ PTx and ambulated in [place] w/ FWW and staff. Pt rocio well. Pt stated that PTx clarified he is to apply the R knee brace when he is "going to sleep" at [facility].
[2021-11-20 18:00] VITALS: BP_SYST 110; BP_SYST 99; BP_DIAS 39; BP_DIAS 68
--- NOTE | 2021-11-20 18:18 | NUR ---
Patient report given, questions answered & plan of care reviewed with Mili Joseph RN .
[2021-11-20] MEDS: atorvastatin 20mg tablet PO SCH (19:57)
[2021-11-20] MEDS: sennosides 8.6mg tablet PO SCH (19:58)
[2021-11-20] MEDS: warfarin 7.5mg tablet PO SCH (19:58)
[2021-11-20 22:00] VITALS: BP 153/62
[2021-11-21] MEDS: HYDROcodone/acetaminophen 10/325mg tab PO PRN ×3 (05:12→19:16)
--- NOTE | 2021-11-21 06:21 | NUR ---
Problems reprioritized. Patient report given, questions answered & plan of care reviewed with MAJO Jenkins.
--- NOTE | 2021-11-21 06:30 | NUR ---
Patient in room ORTHO 4021. I have received report from Mili Joseph RN and had the opportunity to ask questions and assume patient care.
[2021-11-21 06:52] LABS: BASOPHILS % (AUTO) 0.3 % (0-1); EOSINOPHILS # (AUTO) 0.2 X10'3 (0-0.9); EOSINOPHILS % (AUTO) 2.8 % (0-6); HEMATOCRIT 47.1 % (42.0-52.0); LYMPHOCYTES # (AUTO) 1.3 X10'3 (1.1-4.8); LYMPHOCYTES % (AUTO) 18.7 % (21-51); MEAN CORPUSCULAR HEMOGLOBIN 33.1 PG (27.0-31.0); MEAN CORPUSCULAR HGB CONC 33.9 g/dL (33.0-36.5); MEAN CORPUSCULAR VOLUME 97.6 FL (78-98); MEAN PLATELET VOLUME 8.3 FL (7.4-10.4); MONOCYTES % (AUTO) 14.5 % (2-12); NEUTROPHILS # (AUTO) 4.5 X10'3 (1.8-7.7); NEUTROPHILS % (AUTO) 63.7 % (42-75); PLATELET COUNT 196 X10'3 (140-440); RED BLOOD COUNT 4.83 X10'6 (4.70-6.10); WHITE BLOOD COUNT 7.1 X10'3 (4.5-11.0)
[2021-11-21 07:11] VITALS: BP 151/73
[2021-11-21] MEDS: dextroamphetamine/amphetamine 5mg tablet PO SCH (08:45)
[2021-11-21] MEDS: lisinopril 20mg tablet PO SCH ×2 (08:46→20:23)
[2021-11-21] MEDS: ascorbic acid 500mg tablet PO SCH ×2 (08:46→20:26)
[2021-11-21] MEDS: multivitamins, therapeutics tablet PO SCH (08:47)
[2021-11-21] MEDS: gabapentin 300mg capsule PO SCH ×3 (08:47→20:22)
[2021-11-21] MEDS: HYDROchlorothiazide 25mg tablet PO SCH (08:48)
[2021-11-21] MEDS: celeCOXIB 100mg capsule PO SCH ×2 (08:48→20:26)
--- NOTE | 2021-11-21 08:50 | NUR ---
Pt up in chair for assessment & C/O irritation to his skin on his back. This RN assessed the areas the patient indicated were uncomfortable, but no areas of concern. Pt also c/o pain when sitting in recliner w/ legs elevated. Pt verbalized and demonstrated good understanding of hip precautions when up to BR to void. Pt anticipating PTx activity. Pt requested am meds be held until after 0930, when next pain meds were due. He also reported he has a mole on his back that he'd like to have assessed by . Pt was encouraged to call his PMD to make an appointment to be seen after he gets home. The dark mole in center of upper back, approx the size of a dime, had no open areas or drainage, and surrounding skin was clear.
--- NOTE | 2021-11-21 08:53 | NUR ---
Pt assessed and c/o a "dark spot" on his upper back that he'd like to show the MD, c/o superficial irritation to back including R buttock and hip. Berny drsg intact. Pt stated he has hx of irritation w/ adhesives. BERNY "tail" adhered to his buttock, it was removed. Pt has generalized redness that blanches. Pt agreed that benadryl might help "rash". Pt up to BR w/ asst, gait belt, FWW, and voided in toilet. RTN to chair, routine meds admin.
[2021-11-21 10:00] VITALS: BP 147/77
--- NOTE | 2021-11-21 11:00 | NUR ---
Pt reported he continues to c/o of skin discomfort on back. Benadryl PO given per MD order.
--- NOTE | 2021-11-21 14:00 | NUR ---
Dr. Stephanie Jean clarified pt is to be discharged and will not need HHC. AMIRA Kovacs is aware and will discuss w/ patient.
--- NOTE | 2021-11-21 17:33 | NUR ---
Discussed w/ pt he is to be discharged this evening. Pt stated his son will pick him up at 8pm.
--- NOTE | 2021-11-21 18:30 | NUR ---
Patient report given, questions answered & plan of care reviewed with Mili Joseph RN.
[2021-11-21 20:23] VITALS: BP_SYST 152
[2021-11-21] MEDS: atorvastatin 20mg tablet PO SCH (20:26)
[2021-11-21] MEDS: sennosides 8.6mg tablet PO SCH (20:27)
--- NOTE | 2021-11-21 20:49 | NUR ---
PIV removed, questions answered and DC plan gone over. patient to follow up with dr graves. patient transported to [place] via by staff.
== END 2021-11-21 20:30 | disposition home health service (06) | DRG 470 ==
LOC: PRE-OP 09:36 → ORTHO 4S 17:53
PROVIDERS: ADMIT Orthopaedic Surgery; ATTEND Orthopaedic Surgery
PROC: 0SR906Z Replacement of Right Hip Joint with Oxidized Zirconium on Polyethylene Synthetic Substitute, Open Approach (ICD-10-PCS; principal; 2021-11-18 11:52)
DX: M16.11 Unilateral primary osteoarthritis, right hip (principal); Z79.82 Long term (current) use of aspirin; Z79.899 Other long term (current) drug therapy
CPT/HCPCS: 36415; 72170; 80051; 80053; 82948; 85025; 85610; 86885; 86900; 86901; 87081; 97110; 97116; 97161; 97530; A4615; A7000; C1776; G0378; J0171; J0690; J0735; J1170; J1885; J2175; J2250; J2765; J2795; J3010; J3370; J3480; J3490; J7040; J7120; Q0163; Z7610

== ENCOUNTER 2022-01-08 06:43 | Day surgery (SDC) | payer MEDICARE ==
[2022-01-07 13:32] LABS: BASOPHILS % (AUTO) 0.7 % (0-1); EOSINOPHILS # (AUTO) 0.1 X10'3 (0-0.9); HEMATOCRIT 53.3 % (42.0-52.0); LYMPHOCYTES # (AUTO) 1.9 X10'3 (1.1-4.8); LYMPHOCYTES % (AUTO) 29.2 % (21-51); MEAN CORPUSCULAR HEMOGLOBIN 33.3 PG (27.0-31.0); MEAN CORPUSCULAR HGB CONC 34.3 g/dL (33.0-36.5); MEAN CORPUSCULAR VOLUME 97.1 FL (78-98); MEAN PLATELET VOLUME 7.6 FL (7.4-10.4); MONOCYTES # (AUTO) 0.8 X10'3 (0-0.9); NEUTROPHILS # (AUTO) 3.6 X10'3 (1.8-7.7); NEUTROPHILS % (AUTO) 55.1 % (42-75); PLATELET COUNT 306 X10'3 (140-440); RED BLOOD COUNT 5.49 X10'6 (4.70-6.10); RED CELL DISTRIBUTION WIDTH 18.1 % (11.5-14.5); WHITE BLOOD COUNT 6.5 X10'3 (4.5-11.0)
[2022-01-07 13:37] LABS: HEMOGLOBIN 18.3 g/dl (14.0-17.9)
[2022-01-07 13:49] LABS: ALBUMIN 3.7 G/DL (3.4-5.0); ANION GAP 10 (8-16); BLOOD UREA NITROGEN 21 MG/DL (7-18); BUN/CREATININE RATIO 16.9 (5.4-32.0); CALCIUM 9.2 MG/DL (8.5-10.1); CHLORIDE 104 MMOL/L (99-107); CREATININE 1.24 MG/DL (0.60-1.10); GLUCOSE 117 MG/DL (70-104); POTASSIUM 4.2 MMOL/L (3.5-5.1); SODIUM 140 MMOL/L (135-145); eGFR 58 ML/MIN
[~2022-01-08] VITALS: Ht 185.4 cm; Wt 123.4 kg
[2022-01-08] VITALS (32 sets, daily range): BP systolic 80–151; BP diastolic 50–101
[~2022-01-08 06:43] MED LIST changes: -HYDROmorphone inj. 0.5 MG/0.5 ML DISP.SYRIN IV PRN; -TESTOSTERONE CYPIONATE 200 MG/ML VIAL IM SCH; -acetaminophen 325mg tablet PO ONE; -acetaminophen 325mg tablet PO PRN; -atorvastatin 20mg tablet PO SCH; -bisacodyl 10mg suppository rectal RC PRN; -ceFAZolin inj. 3,000 MG in normal saline 100ml IV soln 100 ML IV ONE; -ceFAZolin/D5W- 1GM premix 50 ML IV SCH; -celeCOXIB 100mg capsule PO ONE; -diphenhydrAMINE 25mg capsule PO PRN; -famotidine 20mg tablet PO ONE; -gabapentin 300mg capsule PO ONE; -magnesium hydroxide 30ml (MOM) UD suspension PO PRN; -metoclopramide 5 mg/ml inj IV ONE; -naloxone 0.4 mg/ml inj IV PRN; -ondansetron/PF 4mg/2ml inj IV PRN; -oxyCODONE SR 10mg (sust. release) tab -2 tabs (20mg) PO ONE; -ringers solution, lacted 1,000 ML IV SCH; -tranexamic acid inj. 1,000 MG in normal saline 100ml IV soln 90 ML IV ONE; -vancomycin 1,500 MG in NS 300ml IV soln IV ONE; -warfarin 5mg tablet PO SCH
[2022-01-08] MEDS ORDERED: morphine 10mg/ml inj. IV ONE (07:05)
[2022-01-08] MEDS ORDERED: atropine 0.1mg/ml 10ml syringe IV ONE (07:05)
[2022-01-08] MEDS ORDERED: MIDAZolam 1mg/ml 10ml vial IV ONE (07:05)
[2022-01-08] MEDS ORDERED: LORazepam 0.5 MG tablet PO ONE (07:05)
[2022-01-08] MEDS ORDERED: diphenhydrAMINE 25mg capsule PO ONE (07:05)
[2022-01-08] MEDS ORDERED: amiodarone 150mg/dext, iso-os 100 ML IV ONE (07:05)
[2022-01-08] MEDS ORDERED: normal saline 1000ml 1,000 ML IV SCH (07:15)
[2022-01-08] MEDS ORDERED: GABA300C PO (07:30)
[2022-01-08] MEDS ORDERED: LEVO7.5T7 PO (07:30)
[2022-01-08] MEDS ORDERED: OMEG-133 PO (07:30)
[2022-01-08] MEDS ORDERED: AMIO200T61 PO (07:30)
[2022-01-08] MEDS ORDERED: CARV-50 PO (07:30)
[2022-01-08] MEDS ORDERED: ASCO500C17 PO (07:30)
== END 2022-01-08 13:15 | disposition home or self-care (01) ==
LOC: SSTAY O 06:43
PROVIDERS: ATTEND Internal Medicine Cardiovascular Disease
DX: I48.19 Other persistent atrial fibrillation (principal); I10 Essential (primary) hypertension; E78.5 Hyperlipidemia, unspecified; I42.9 Cardiomyopathy, unspecified; I73.9 Peripheral vascular disease, unspecified; I48.0 Paroxysmal atrial fibrillation
CPT/HCPCS: 36415; 80048; 85025; 85610; 92960; 93005; J2250; J2274; J7030; A4615; A4620

== ENCOUNTER 2022-02-27 19:35 | Emergency (ER) | payer MEDICARE ==
[~2022-02-27] VITALS: Ht 188 cm; Wt 122.7 kg
[~2022-02-27 19:35] MED LIST changes: +AMIO200T61 PO; +ASCO500C17 PO; +CARV-50 PO; +GABA300C PO; +LEVO7.5T7 PO; -NAPR-1170 PO
[2022-02-27 19:42] VITALS: BP 154/82
[2022-02-28] MEDS ORDERED: LIDOcaine 1% W/epiNEPHrine 1:100,000 20ml vial SQ ONE (02:30)
[2022-02-28] MEDS ORDERED: LIDOCAINE 1%/EPI 1:100,000 inj. 10 ML multi-dose vial SQ ONE (02:30)
== END 2022-02-28 03:40 | disposition home or self-care (01) ==
LOC: ER 19:36
DX: S31.010A Laceration without foreign body of lower back and pelvis without penetration into retroperitoneum, initial encounter (principal); Z88.8 Allergy status to other drugs, medicaments and biological substances; X58.XXXA Exposure to other specified factors, initial encounter; Y93.89 Activity, other specified; Y92.89 Other specified places as the place of occurrence of the external cause; Y99.8 Other external cause status
CPT/HCPCS: 12002; 99282; A6222; J7030; A6258

== ENCOUNTER 2023-07-21 08:43 | Day surgery (SDC) | payer MEDICARE ==
[2023-07-20 15:23] LABS: BASOPHILS % (AUTO) 0.6 % (0-1); EOSINOPHILS # (AUTO) 0.1 X10'3 (0-0.9); EOSINOPHILS % (AUTO) 0.7 % (0-6); HEMATOCRIT 56.1 % (42.0-52.0); LYMPHOCYTES # (AUTO) 1.7 X10'3 (1.1-4.8); LYMPHOCYTES % (AUTO) 22.1 % (21-51); MEAN CORPUSCULAR HEMOGLOBIN 32.8 PG (27.0-31.0); MEAN CORPUSCULAR HGB CONC 33.4 g/dL (33.0-36.5); MEAN CORPUSCULAR VOLUME 98.3 FL (78-98); MEAN PLATELET VOLUME 7.5 FL (7.4-10.4); MONOCYTES # (AUTO) 0.8 X10'3 (0-0.9); MONOCYTES % (AUTO) 10.7 % (2-12); NEUTROPHILS # (AUTO) 5.1 X10'3 (1.8-7.7); NEUTROPHILS % (AUTO) 65.9 % (42-75); PLATELET COUNT 282 X10'3 (140-440); RED BLOOD COUNT 5.71 X10'6 (4.70-6.10); RED CELL DISTRIBUTION WIDTH 16.4 % (11.5-14.5); WHITE BLOOD COUNT 7.8 X10'3 (4.5-11.0)
[2023-07-20 15:27] LABS: ALBUMIN 3.4 G/DL (3.4-5.0); ANION GAP 10 (8-16); BLOOD UREA NITROGEN 14 MG/DL (7-18); BUN/CREATININE RATIO 12.8 (10.0-20.0); CHLORIDE 103 MMOL/L (99-107); CREATININE 1.09 MG/DL (0.60-1.10); GLUCOSE 121 MG/DL (70-104); POTASSIUM 4.2 MMOL/L (3.5-5.1); SODIUM 138 MMOL/L (135-145); TOTAL CARBON DIOXIDE 25.5 MMOL/L (24-32); eGFR 66 ML/MIN
[2023-07-20 15:36] LABS: APTT 29 SECONDS (22-32); INR 1.2 INR; PROTHROMBIN TIME 12.4 SECONDS (9.0-12.0)
[2023-07-20 15:43] LABS: HEMOGLOBIN 18.7 g/dl (14.0-17.9)
[2023-07-21] VITALS (8 sets, daily range): BP systolic 104–125; BP diastolic 65–90; PULSE 73–104; RESP 16–20; TEMP 97.7; O2SAT 92–96
[~2023-07-21] VITALS: Ht 188 cm; Wt 125.1 kg
[~2023-07-21 08:43] MED LIST changes: -AMIO200T61 PO; -AMPH30TA3 PO; +CARCD120C PO; -CARV-50 PO; -CYAN500T71 PO; +FURO20TA4 PO; -GABA300C PO; +GABA800T11 PO; -HYDR25TA5 PO; -LEVO7.5T7 PO; -PYRI-3 PO; -WARF-55 PO; +WARF1TAB83 PO
[2023-07-21] MEDS ORDERED: cefazolin 2gm/D5W 100mL 100 ML IV ONE (08:55)
[2023-07-21] MEDS ORDERED: FURO20TA4 PO (09:54)
[2023-07-21] MEDS ORDERED: DILT-94 PO (09:54)
[2023-07-21] MEDS ORDERED: TRAZ150T78 PO (09:54)
[2023-07-21] MEDS ORDERED: DEXT30TA10 PO (09:54)
[2023-07-21] MEDS ORDERED: GABA300T28 PO (09:54)
[2023-07-21] MEDS ORDERED: ceFAZolin 1000mg inj ONE (10:44)
[2023-07-21] MEDS ORDERED: fentaNYL/PF 50MCG/1 ML 2ML syringe ONE (10:44)
[2023-07-21] MEDS ORDERED: LIDOcaine 1% W/epiNEPHrine 1:100,000 20ml vial ONE ×3 (10:44→12:54)
[2023-07-21] MEDS ORDERED: midazolam 1 mg/ML 2ml injection ONE (10:44)
[2023-07-21] MEDS ORDERED: verapamil 2.5 mg/ml inj IV ONE (11:50)
[2023-07-21] MEDS ORDERED: HYDROcodone/acetaminophen 10/325mg tab PO PRN (13:50)
[2023-07-21] MEDS ORDERED: HYDROcodone/acetaminophen 5mg/325mg tablet PO PRN (13:50)
[2023-07-21] MEDS: vancomycin/NS 1 GM ADD-VANTAGE 250 ML X 1 DOSE IV ONE (13:55)
[2023-07-21] MEDS ORDERED: sod chloride 0.9% 10ml flush syringe IV SCH (16:00)
== END 2023-07-21 16:03 | disposition home or self-care (01) ==
LOC: SSTAY O 08:43
PROVIDERS: ATTEND Internal Medicine Cardiovascular Disease
DX: I49.5 Sick sinus syndrome (principal); I48.0 Paroxysmal atrial fibrillation; I25.119 Atherosclerotic heart disease of native coronary artery with unspecified angina pectoris; I42.9 Cardiomyopathy, unspecified; I11.0 Hypertensive heart disease with heart failure; I50.9 Heart failure, unspecified; I27.20 Pulmonary hypertension, unspecified; E78.5 Hyperlipidemia, unspecified; E66.9 Obesity, unspecified; Z68.33 Body mass index [BMI] 33.0-33.9, adult; E21.3 Hyperparathyroidism, unspecified; G62.9 Polyneuropathy, unspecified; G60.9 Hereditary and idiopathic neuropathy, unspecified; F41.9 Anxiety disorder, unspecified; I44.2 Atrioventricular block, complete; F32.A Depression, unspecified; Z86.711 Personal history of pulmonary embolism; Z96.652 Presence of left artificial knee joint; Z96.611 Presence of right artificial shoulder joint; Z98.890 Other specified postprocedural states; Z88.8 Allergy status to other drugs, medicaments and biological substances; Z72.89 Other problems related to lifestyle; Z79.899 Other long term (current) drug therapy; Z79.01 Long term (current) use of anticoagulants
CPT/HCPCS: 33208; 33286; 36415; 71046; 80048; 85025; 85610; 85730; 93005; 99152; 99153; C1785; C1898; J0690; J2250; J3010; J3370; J3490; J7030; A4565; A6258; A6449

== ENCOUNTER 2023-07-23 16:45 | Emergency (ER) | payer MEDICARE ==
[~2023-07-23] VITALS: Ht 188 cm; Wt 125.0 kg
[~2023-07-23 16:45] MED LIST changes: -ASCO500C17 PO; -CARCD120C PO; +DEXT30TA10 PO; +DILT-94 PO; -FOLI0.4T14 PO; +GABA300T28 PO; -GABA800T11 PO; -OMEG-133 PO; +TRAZ150T78 PO
[2023-07-23 16:51] VITALS: BP 146/101; PULSE 80; RESP 20; TEMP 98.6; O2SAT 95
[2023-07-23 17:23] LABS: BASOPHILS % (AUTO) 0.4 % (0-1); EOSINOPHILS # (AUTO) 0.2 X10'3 (0-0.9); EOSINOPHILS % (AUTO) 1.7 % (0-6); HEMATOCRIT 55.1 % (42.0-52.0); LYMPHOCYTES # (AUTO) 1.7 X10'3 (1.1-4.8); LYMPHOCYTES % (AUTO) 17.7 % (21-51); MEAN CORPUSCULAR HEMOGLOBIN 32.4 PG (27.0-31.0); MEAN CORPUSCULAR HGB CONC 32.9 g/dL (33.0-36.5); MEAN CORPUSCULAR VOLUME 98.6 FL (78-98); MEAN PLATELET VOLUME 8.1 FL (7.4-10.4); MONOCYTES % (AUTO) 10.7 % (2-12); NEUTROPHILS # (AUTO) 6.6 X10'3 (1.8-7.7); NEUTROPHILS % (AUTO) 69.5 % (42-75); PLATELET COUNT 266 X10'3 (140-440); RED BLOOD COUNT 5.59 X10'6 (4.70-6.10); RED CELL DISTRIBUTION WIDTH 16.9 % (11.5-14.5); WHITE BLOOD COUNT 9.4 X10'3 (4.5-11.0)
[2023-07-23 17:30] LABS: HEMOGLOBIN 18.1 g/dl (14.0-17.9)
[2023-07-23 17:42] LABS: ALBUMIN 3.5 G/DL (3.4-5.0); ANION GAP 8 (8-16); BLOOD UREA NITROGEN 19 MG/DL (7-18); BUN/CREATININE RATIO 16.1 (10.0-20.0); CHLORIDE 103 MMOL/L (99-107); CREATININE 1.18 MG/DL (0.60-1.10); GLUCOSE 111 MG/DL (70-104); POTASSIUM 4.4 MMOL/L (3.5-5.1); PRO BRAIN NATRIURETIC PEPTIDE 394 PG/ML (0-125); SODIUM 139 MMOL/L (135-145); eCRCL 66 ML/MIN; eGFR 61 ML/MIN
== END 2023-07-23 19:04 | disposition left against medical advice (07) ==
LOC: ER 16:46
DX: R06.02 Shortness of breath (principal); R11.0 Nausea; R06.00 Dyspnea, unspecified
CPT/HCPCS: 71045; 80048; 83735; 83880; 84484; 85025; 93005; 99285

== ENCOUNTER 2023-07-23 20:34 | Emergency (ER) | payer MEDICARE ==
[~2023-07-23] VITALS: Ht 188 cm; Wt 122.0 kg
[2023-07-23 20:51] VITALS: TEMP 98.5
[2023-07-23] MEDS ORDERED: iohexol 350MG/ML 100ml bottle IV ONE (20:59)
[2023-07-23] MEDS: ondansetron/PF 4mg/2ml inj IV ONE (21:30)
[2023-07-23 22:49] VITALS: BP 94/69; PULSE 63; RESP 20; O2SAT 97
== END 2023-07-23 22:51 | disposition home or self-care (01) ==
LOC: ER 20:35
DX: F43.20 Adjustment disorder, unspecified (principal); R07.89 Other chest pain; R06.00 Dyspnea, unspecified; I11.0 Hypertensive heart disease with heart failure; I50.9 Heart failure, unspecified; I48.91 Unspecified atrial fibrillation; Z86.711 Personal history of pulmonary embolism; Z88.8 Allergy status to other drugs, medicaments and biological substances; Z79.899 Other long term (current) drug therapy
CPT/HCPCS: 71275; 96374; 99285; J2405; J3490; Q9967

== ENCOUNTER 2023-09-06 05:58 | Day surgery (SDC) | payer MEDICARE ==
[2023-09-06] VITALS (12 sets, daily range): BP systolic 94–115; BP diastolic 67–83; PULSE 80–88; RESP 16; TEMP 97.5; O2SAT 92–97
[~2023-09-06] VITALS: Ht 185.4 cm; Wt 120.8 kg
[2023-09-06] MEDS ORDERED: AMPH30TA3 PO (06:21)
[2023-09-06] MEDS ORDERED: DOCU-22 PO (06:23)
[2023-09-06] MEDS ORDERED: CARV-50 PO (06:23)
[2023-09-06] MEDS ORDERED: FURO40TA4 PO (06:24)
[2023-09-06] MEDS ORDERED: SACU1TAB PO (06:24)
[2023-09-06] MEDS ORDERED: EMPA10TA PO (06:25)
[2023-09-06] MEDS ORDERED: SPIR25TA5 PO (06:25)
[2023-09-06] MEDS ORDERED: WARF2.5T82 PO (06:27)
[2023-09-06] MEDS ORDERED: POTA10CA85 PO (06:27)
[2023-09-06] MEDS ORDERED: GABA-530 PO (06:29)
[2023-09-06] MEDS ORDERED: ALPR0.5T9 PO (06:29)
[2023-09-06] MEDS ORDERED: AMI200T PO (06:30)
[2023-09-06] MEDS ORDERED: normal saline 1000ml 1,000 ML IV SCH (06:45)
[2023-09-06] MEDS ORDERED: amiodarone 150mg/dext, iso-os 100 ML IV ONE (06:45)
[2023-09-06] MEDS ORDERED: LORazepam 0.5 MG tablet PO ONE (06:45)
[2023-09-06] MEDS ORDERED: morphine 10mg/ml inj. IV ONE (06:45)
[2023-09-06] MEDS ORDERED: atropine 0.1mg/ml 10ml syringe IV ONE (06:45)
[2023-09-06] MEDS ORDERED: diphenhydrAMINE 25mg capsule PO ONE (06:45)
[2023-09-06 07:08] LABS: EOSINOPHILS # (AUTO) 0.1 X10'3 (0-0.9); MEAN PLATELET VOLUME 7.8 FL (7.4-10.4); RED CELL DISTRIBUTION WIDTH 16.8 % (11.5-14.5); WHITE BLOOD COUNT 5.6 X10'3 (4.5-11.0)
[2023-09-06 07:11] LABS: BASOPHILS # (AUTO) 0.1 X10'3 (0-0.2); BASOPHILS % (AUTO) 1.3 % (0-1); EOSINOPHILS % (AUTO) 1.7 % (0-6); HEMATOCRIT 57.1 % (42.0-52.0); LYMPHOCYTES # (AUTO) 1.3 X10'3 (1.1-4.8); LYMPHOCYTES % (AUTO) 23.2 % (21-51); MEAN CORPUSCULAR HEMOGLOBIN 32.5 PG (27.0-31.0); MEAN CORPUSCULAR HGB CONC 33.8 g/dL (33.0-36.5); MONOCYTES % (AUTO) 17.3 % (2-12); NEUTROPHILS # (AUTO) 3.2 X10'3 (1.8-7.7); NEUTROPHILS % (AUTO) 56.5 % (42-75); PLATELET COUNT 214 X10'3 (140-440); RED BLOOD COUNT 5.95 X10'6 (4.70-6.10)
[2023-09-06 07:16] LABS: HEMOGLOBIN 19.3 g/dl (14.0-17.9)
[2023-09-06 07:18] LABS: INR 1.6 INR; PROTHROMBIN TIME 16.6 SECONDS (9.0-12.0)
[2023-09-06 07:27] LABS: ALBUMIN 3.1 G/DL (3.4-5.0); ANION GAP 10 (8-16); BLOOD UREA NITROGEN 31 MG/DL (7-18); CALCIUM 8.5 MG/DL (8.5-10.1); CHLORIDE 103 MMOL/L (99-107); CREATININE 1.63 MG/DL (0.60-1.10); GLUCOSE 121 MG/DL (70-104); POTASSIUM 4.2 MMOL/L (3.5-5.1); SODIUM 137 MMOL/L (135-145); TOTAL CARBON DIOXIDE 23.8 MMOL/L (24-32); eCRCL 46 ML/MIN; eGFR 42 ML/MIN
[2023-09-06 08:27] LABS: NUCLEATED RED BLOOD CELLS 1 /100WBC (0-0); PLATELET ESTIMATE NORMAL; TOTAL CELLS COUNTED 100
[2023-09-06 08:28] LABS: ANISOCYTOSIS 1+; TEAR DROP CELLS FEW
[2023-09-06] MEDS: MIDAZolam 1mg/ml 10ml vial IV ONE (10:08)
== END 2023-09-06 11:50 | disposition home or self-care (01) ==
LOC: SSTAY O 05:58
PROVIDERS: ATTEND Internal Medicine Cardiovascular Disease
DX: I48.0 Paroxysmal atrial fibrillation (principal); I10 Essential (primary) hypertension; E78.5 Hyperlipidemia, unspecified; I49.5 Sick sinus syndrome; Z95.0 Presence of cardiac pacemaker; Z79.899 Other long term (current) drug therapy
CPT/HCPCS: 36415; 80048; 82948; 85025; 85610; 92960; 93005; J2250; J7030; 85007; A4620

== ENCOUNTER 2023-12-16 06:51 | Day surgery (SDC) | payer MEDICARE ==
[2023-12-15 15:46] LABS: BASOPHILS % (AUTO) 0.6 % (0-1); EOSINOPHILS # (AUTO) 0.1 X10'3 (0-0.9); EOSINOPHILS % (AUTO) 2.4 % (0-6); HEMATOCRIT 53.2 % (42.0-52.0); LYMPHOCYTES # (AUTO) 1.8 X10'3 (1.1-4.8); LYMPHOCYTES % (AUTO) 34.5 % (21-51); MEAN CORPUSCULAR HEMOGLOBIN 32.8 PG (27.0-31.0); MEAN CORPUSCULAR HGB CONC 33.8 g/dL (33.0-36.5); MEAN CORPUSCULAR VOLUME 97.1 FL (78-98); MEAN PLATELET VOLUME 7.8 FL (7.4-10.4); MONOCYTES # (AUTO) 0.5 X10'3 (0-0.9); MONOCYTES % (AUTO) 10.5 % (2-12); NEUTROPHILS # (AUTO) 2.7 X10'3 (1.8-7.7); PLATELET COUNT 224 X10'3 (140-440); RED BLOOD COUNT 5.48 X10'6 (4.70-6.10); RED CELL DISTRIBUTION WIDTH 21.7 % (11.5-14.5); WHITE BLOOD COUNT 5.2 X10'3 (4.5-11.0)
[2023-12-15 15:54] LABS: ALBUMIN 3.7 G/DL (3.4-5.0); ANION GAP 8 (8-16); BLOOD UREA NITROGEN 25 MG/DL (7-18); CALCIUM 8.9 MG/DL (8.5-10.1); CHLORIDE 104 MMOL/L (99-107); CREATININE 1.39 MG/DL (0.60-1.10); GLUCOSE 127 MG/DL (70-104); POTASSIUM 3.9 MMOL/L (3.5-5.1); SODIUM 138 MMOL/L (135-145); TOTAL CARBON DIOXIDE 25.6 MMOL/L (24-32); eGFR 50 ML/MIN
[2023-12-15 15:56] LABS: INR 2.8 INR; PROTHROMBIN TIME 27.5 SECONDS (9.0-12.0)
[~2023-12-16] VITALS: Ht 188 cm; Wt 123.1 kg
[2023-12-16] VITALS (13 sets, daily range): BP systolic 108–135; BP diastolic 72–98; PULSE 79–80; RESP 14–16; TEMP 98.5; O2SAT 89–95
[~2023-12-16 06:51] MED LIST changes: +ALPR0.5T9 PO; +AMI200T PO; +AMPH30TA3 PO; +CARV-50 PO; -DEXT30TA10 PO; +DOCU-22 PO; +EMPA10TA PO; -FURO20TA4 PO; +FURO40TA4 PO; +GABA-530 PO; -GABA300T28 PO; -LISI40TA13 PO; +POTA10CA95 PO; +SACU1TAB PO; +SPIR25TA5 PO; -TRAZ150T78 PO; +WARF2.5T82 PO
[2023-12-16] MEDS ORDERED: atropine 0.1mg/ml 10ml syringe IV ONE (07:15)
[2023-12-16] MEDS ORDERED: diphenhydrAMINE 25mg capsule PO ONE (07:15)
[2023-12-16] MEDS ORDERED: LORazepam 0.5 MG tablet PO ONE (07:15)
[2023-12-16] MEDS ORDERED: amiodarone 150mg/dext, iso-os 100 ML IV ONE (07:15)
[2023-12-16] MEDS ORDERED: VALS160T30 PO (08:12)
[2023-12-16] MEDS: morphine 10mg/ml inj. IV ONE (10:29)
[2023-12-16] MEDS: normal saline 1000ml 1,000 ML IV SCH (10:30)
[2023-12-16] MEDS: MIDAZolam 1mg/ml 10ml vial IV ONE (10:30)
== END 2023-12-16 12:10 | disposition home or self-care (01) ==
LOC: SSTAY O 06:51
PROVIDERS: ATTEND Internal Medicine Cardiovascular Disease
DX: I48.91 Unspecified atrial fibrillation (principal); I48.92 Unspecified atrial flutter; I11.0 Hypertensive heart disease with heart failure; I50.32 Chronic diastolic (congestive) heart failure; I25.119 Atherosclerotic heart disease of native coronary artery with unspecified angina pectoris; E78.5 Hyperlipidemia, unspecified; E66.9 Obesity, unspecified; G47.30 Sleep apnea, unspecified; I42.9 Cardiomyopathy, unspecified; E05.90 Thyrotoxicosis, unspecified without thyrotoxic crisis or storm; M10.9 Gout, unspecified; F41.9 Anxiety disorder, unspecified; F32.A Depression, unspecified; Z86.711 Personal history of pulmonary embolism; Z79.01 Long term (current) use of anticoagulants; Z79.899 Other long term (current) drug therapy; Z96.652 Presence of left artificial knee joint; Z96.611 Presence of right artificial shoulder joint; Z95.0 Presence of cardiac pacemaker; Z98.890 Other specified postprocedural states; Z68.34 Body mass index [BMI] 34.0-34.9, adult; Z88.8 Allergy status to other drugs, medicaments and biological substances
CPT/HCPCS: 36415; 80048; 85025; 85610; 92960; 93005; J2250; J2270; J7030; J2274